=== PATIENT | female | born 1975 | race Caucasian/White ===

== ENCOUNTER → 2018-01-07 19:19 | Outpatient (CLI) | payer BC ==
[2016-02-27 12:47] VITALS: BMI 19.8
[~2018-01-07 19:19] MED LIST: CYMBALTA60 MG PO; KLONOPIN0.5 MG PO; ZOFRAN ODT4 MG/UDTAB PO
== END | disposition home or self-care (01) ==
LOC: D.SLEEP 19:19
DX: G47.10 Hypersomnia, unspecified (principal); G47.411 Narcolepsy with cataplexy